=== PATIENT | male | born 1975 | race Hispanic/Latino ===

== ENCOUNTER 2025-04-15 10:44 | Emergency (ER) | payer OTHER ==
[~2025-04-15] VITALS: Ht 162.6 cm; Wt 68.0 kg
--- NOTE | 2025-04-15 11:36 | HMCIMG ---
Exam Type: HAND 3+VWS LT Clinical Information: injury with drill to thumb Comparison: None Findings: The bone examination is unremarkable. No fractures or dislocations are seen. No radiopaque foreign bodies are noted. Soft tissue laceration of the first digit seen without underlying fractures. IMPRESSION: Normal bony examination.
[2025-04-15] MEDS: LIDOCAINE HCL 1% 20 ML VIAL INJ STA (11:46)
[2025-04-15] MEDS: ceFAZolin SODIUM 1 GM VIAL IM STA (11:46)
[2025-04-15] MEDS: HYDROcodone/APAP 5/325 1 TAB TABLET PO STA (11:46)
[2025-04-15] MEDS: teTANUS/diphthERIA TOXOID [ADULT] 0.5 ML VIAL IM ONE (11:48)
[2025-04-15] MEDS ORDERED: CEPH500B PO (12:04)
--- NOTE | 2025-04-15 12:05 | ERN ---
ED Note History of Present Illness Stated Complaint: DRILL LACERATION ON LT THUMB Chief Complaint: Laceration/Avulsion Time Seen by MD: 10:48 Time Seen by Midlevel: 10:50 Dictation: 49-year-old male coming in for laceration to the right thumb at the base with a drill. Patient is on aware if he is up-to-date with his tetanus vaccine. No other complaints Allergies: Coded Allergies: No Known Drug Allergies (Unverified Allergy, Unknown, 04/15/25) Past Medical History Past Medical History: High Cholesterol Surgical History: Other Surgical History Other: RIGHT SHOULDER , RIGHT BICEP, RIGHT LEG Review of System Dictation Constitutional: Negative for fever,chills, and weight loss Eyes: Negative for injury, pain,redness, and discharge ENT: Negative for injury,pain or swelling Cardiovascular: Negative for chest pain, palpitations, and edema Respiratory: Negative for shortness of breath, cough, and wheezing, Abdomen/GI: Negative for abdominal pain, nausea, vomiting, diarrhea, and constipation Back: Negative for injury and pain : Negative for injury, bleeding and discharge MS/Extremity: Negative for injury and deformity Skin: Negative for rash, and discoloration, laceration to the base of the right thumb Neuro: Negative for headache, weakness, numbness, tingling, and seizure Psych: Negative for suicide ideation, homicidal ideation, and hallucinations Review of Systems: was completed Initial Vital Sign VS Vital Signs Date Time Temp Pulse Resp B/P (MAP) Pulse Ox O2 Delivery O2 Flow Rate FiO2 04/15/25 10:52 98.1 70 20 105/63 99 Room Air 0 Physical Exam Dictation General: awake, alert, NAD Head/Face: Normocephalic, atraumatic Eyes: PERRL, EOMI, vision at baseline ENT: oral cavity clear, TMs clear, no signs of infection Neck: Trachea midline, supple, no nuchal rigidity Cardiovascular: RRR, normal S1/S2, No MRGs, no JVD Respiratory: CTAB, no respiratory distress, No rales or wheezes Abdomen: Soft, non-tender, non-distended, normal bowel sounds, no guarding or rebound. Skin: Warm, dry, normal turgor, no rash MS/Extremity: Pulses equal, no cyanosis, neurovascular intact, FROM, there is a 1 in laceration to the base of the right thumb, patient has good flexion and extension of the thumb. Low suspicion for tendon involvement. Neuro: COAx4, GCS 15, strength 5/5, CN 2-12 intact, normal cerebellar exam, normal gait, Psych: Normal behavior, mood, and affect normal Results (Laboratory/Radiology) X-RAY Comment: [facility] [id number] [place], [place] [id number] IMAGING REPORT Signed PATIENT: THEODORE FRY MR#: [id number] : 1975 SEX: M AGE: 49 LOCATION: [facility] ORDER 105 STATUS: REG ER REPORT#: [id number] SERVICE 105 REASON: injury with drill to thumb ORDERING PHYSICIAN: ZELDA BUTCHER NP PROCEDURE: HAND 3V LT - HAND 3+VWS LT Exam Type: HAND 3+VWS LT Clinical Information: injury with drill to thumb Comparison: None Findings: The bone examination is unremarkable. No fractures or dislocations are seen. No radiopaque foreign bodies are noted. Soft tissue laceration of the first digit seen without underlying fractures. IMPRESSION: Normal bony examination. DICTATED BY: CAROLINA BALDERRAMA MD DATE: 04/15/251132 ELECTRONICALLY SIGNED BY: CAROLINA BALDERRAMA MD DATE: 04/15/251135 ED Course ED Course Orders Procedure Category Date Status Time Hand 3+Vws Lt RAD 04/15/25 Resulted 10:53 Tetanus,Diphtheria PHA 04/15/25 Complete Tox [Adult] (Diphther 11:00 Cefazolin Sodium 1 Gm PHA 04/15/25 Complete Vial (Ancef 1 Gm V 10:53 Hydrocodone/Apap PHA 04/15/25 Complete 5/325 (Leon 5/325mg) 10:53 Lidocaine Hcl 1% 20ml PHA 04/15/25 Complete Vial (Lidocaine Hc 10:53 Water For PHA 04/15/25 Complete Injection,Sterile 11:35 Current Medications Medications (Trade) Dose Ordered Sig/Hernando Route PRN Reason Start Time Stop Time Status Last Admin Dose Admin Acetaminophen/ Hydrocodone Bitart (NORco 5/325MG) 1 tab ONCE STAT PO 04/15/25 10:53 04/15/25 11:27 DC 04/15/25 11:46 Cefazolin Sodium (ANCEF 1 gm vial) 1 gm ONCE STAT IM 04/15/25 10:53 04/15/25 11:27 DC 04/15/25 11:46 Lidocaine HCl (Lidocaine HCl 1% 20ml Vial) ONCE STAT INJ 04/15/25 10:53 04/15/25 11:27 DC 04/15/25 11:46 Sterile Water (Sterile Water, Injection) 10 ml STK-MED ONCE .ROUTE 04/15/25 11:35 04/15/25 11:36 DC 04/15/25 11:48 Tetanus/ Diphtheria Toxoids Adsorbed (DiphthERIA-teTANUS TOXOID [ADULT]/ DECAVAC) 0.5 ml ONCE ONCE IM 04/15/25 11:00 04/15/25 11:27 DC 04/15/25 11:48 Vital Signs Date Time Temp Pulse Resp B/P (MAP) Pulse Ox O2 Delivery O2 Flow Rate FiO2 04/15/25 10:52 98.1 70 20 105/63 99 Room Air 0 Medical Decision Making MDM MDM: 49-year-old male coming in for laceration to the right thumb at the base with a drill. Patient is on aware if he is up-to-date with his tetanus vaccine. No other complaints see laceration repair. Educated patient to return if 7-10 days to remove sutures. Educated on red flag symptoms to return back to the emergency room. Patient verbalized understanding, answered all questions. Differential diagnosis: Laceration, tendon involvement, fracture Rationale: Tests considered and ordered secondary to shared decision making include: Previous outside records reviewed: Old ER visits. Risk of complication and/or morbidity or mortality of patient management: None Medications-Per medication reconciliation Need for hospitalization: Patient does not meet criteria for hospitalization. Need for emergency major/minor surgery: No There are no social concerns with this patient. Prescription drug management Prescriptions will include symptomatic care Patient's prior external medical records from other ER visits were reviewed by me as indicated. Prior testing and results from previous visits were reviewed. Prior tests were taken into account with medical decision making and resource utilization, independent historian/historians were used to obtain complete medical history. I independently interpreted the test that were performed, results were reviewed by me and considered findings on radiology if ordered. Medical management and examination interpretation discussions were had by me with other qualified healthcare professionals as indicated for the patient's care. Procedure Wound Location: upper extremity (right hand, thumb) Wound's Depth, Shape: irregular Wound Explored: clean Irrigated w/ Saline (ccs): 30 Anesthesia: 1% Lidocaine Volume Anesthetic (ccs): 8 Wound Debrided: minimal Wound Repaired With: sutures Suture Size/Type: 3:0 Number of Sutures: 7 DX & DISP Disposition: Discharge Departure Impression: Primary Impression: Laceration of thumb Condition: Stable Scripts Cephalexin Monohydrate (Keflex) 500 Mg Cap 500 MG PO BID for 7 Days, #14 CAP Prov: ZELDA BUTCHER METHODS ANALYST DATA PROCESSING 04/15/25 Additional Instructions: Keep area clean. Wash with soap and water. Avoid any moisture. Up did not apply any ointment or creams. Take antibiotics as prescribed. Return in 7-10 days to remove sutures. Return sooner if you notice any signs of infection. Referrals: SELF,REFERRAL (PCP) ZELDA BUTCHER NP Apr 15, 2025 12:05
[2025-04-15 12:06] VITALS: BP 110/62; PULSE 70; RESP 2; TEMP 98.1; O2SAT 99
== END 2025-04-15 12:16 | disposition home or self-care (01) ==
LOC: EDH 10:44
DX: S61.011A Laceration without foreign body of right thumb without damage to nail, initial encounter (principal); E78.00 Pure hypercholesterolemia, unspecified; X78.8XXA Intentional self-harm by other sharp object, initial encounter; Y93.89 Activity, other specified; Y92.89 Other specified places as the place of occurrence of the external cause; Y99.8 Other external cause status
CPT/HCPCS: 99284; 90714; 73130; 90471; 12001; 96372; J0690

== ENCOUNTER 2025-04-23 12:03 | Emergency (ER) | payer OTHER ==
[~2025-04-23] VITALS: Ht 162.6 cm; Wt 68.0 kg
[~2025-04-23 12:03] MED LIST: CEPH500B PO
--- NOTE | 2025-04-23 12:38 | ERN ---
ED Note History of Present Illness Stated Complaint: SUTURE REMOVAL Chief Complaint: Suture/Staple Removal Time Seen by MD: 12:06 Time Seen by Midlevel: 12:10 Dictation: 49-year-old male coming in for suture removal on his left thumb. Sutures were placed eight days ago when he had an accident with a drill. Denies having any discharge redness. Allergies: Coded Allergies: No Known Drug Allergies (Unverified Allergy, Unknown, 04/15/25) Home Meds Active Scripts Cephalexin Monohydrate (Keflex) 500 Mg Cap, 500 MG PO BID for 7 Days, #14 CAP Prov:ZELDA BUTCHER [employer]ENDIARY POWDER MIXER 04/15/25 Past Medical History Past Medical History: High Cholesterol Surgical History: Other Surgical History Other: RT SHOULDER RT THUMB , RT LEG FX Review of System Dictation Constitutional: Negative for fever,chills, and weight loss Eyes: Negative for injury, pain,redness, and discharge ENT: Negative for injury,pain or swelling Cardiovascular: Negative for chest pain, palpitations, and edema Respiratory: Negative for shortness of breath, cough, and wheezing, Abdomen/GI: Negative for abdominal pain, nausea, vomiting, diarrhea, and const ipation Back: Negative for injury and pain : Negative for injury, bleeding and discharge MS/Extremity: Negative for injury and deformity Skin: Negative for rash, and discoloration, lactic left thumb with sutures in place Neuro: Negative for headache, weakness, numbness, tingling, and seizure Psych: Negative for suicide ideation, homicidal ideation, and hallucinations Review of Systems: was completed Initial Vital Sign VS Vital Signs Date Time Temp Pulse Resp B/P (MAP) Pulse Ox O2 Delivery O2 Flow Rate FiO2 04/23/25 12:06 98.1 64 16 112/79 99 Room Air 0 04/23/25 12:39 21 Physical Exam Dictation General: awake, alert, NAD Head/Face: Normocephalic, atraumatic Eyes: PERRL, EOMI, vision at baseline ENT: oral cavity clear, TMs clear, no signs of infection Neck: Trachea midline, supple, no nuchal rigidity Cardiovascular: RRR, normal S1/S2, No MRGs, no JVD Respiratory: CTAB, no respiratory distress, No rales or wheezes Abdomen: Soft, non-tender, non-distended, normal bowel sounds, no guarding or rebound. Skin: Warm, dry, normal turgor, no rash, sutures are intact, no redness no drainage. Patient has limited ROM could be related to swelling. Removed sutures, little bit of dehiscence to the edge of the wound, applied some Steri- Strips. MS/Extremity: Pulses equal, no cyanosis, neurovascular intact, FROM Neuro: COAx4, GCS 15, strength 5/5, CN 2-12 intact, normal cerebellar exam, normal gait, Psych: Normal behavior, mood, and affect normal ED Course ED Course Vital Signs Date Time Temp Pulse Resp B/P (MAP) Pulse Ox O2 Delivery O2 Flow Rate FiO2 04/23/25 12:39 98.1 62 18 118/74 98 Room Air* 0 21 04/23/25 12:06 98.1 64 16 112/79 99 Room Air 0 Medical Decision Making MDM MDM: 49-year-old male coming in for suture removal on his left thumb. Sutures were placed eight days ago when he had an accident with a drill. Denies having any discharge redness. Patient states he has finished his course of antibiotics. Sutures removed. Minimal dehiscence to the edge of the wound, applied Steri-Strips. Discussed with the patient to keep area clean and dry. Discussed to return if he has any drainage, redness, or any signs of infection. Patient verbalized understanding, answered all questions. Differential diagnosis: Wound dehiscence, cellulitis, suture all Rationale: Tests considered and ordered secondary to shared decision making include: Previous outside records reviewed: Old ER visits. Risk of complication and/or morbidity or mortality of patient management: None Medications-Per medication reconciliation Need for hospitalization: Patient does not meet criteria for hospitalization. Need for emergency major/minor surgery: No There are no social concerns with this patient. Prescription drug management Prescriptions will include symptomatic care Patient's prior external medical records from other ER visits were reviewed by me as indicated. Prior testing and results from previous visits were reviewed. Prior tests were taken into account with medical decision making and resource utilization, independent historian/historians were used to obtain complete medical history. I independently interpreted the test that were performed, results were reviewed by me and considered findings on radiology if ordered. Medical management and examination interpretation discussions were had by me with other qualified healthcare professionals as indicated for the patient's care. DX & DISP Disposition: Discharge Departure Impression: Primary Impression: Encounter for removal of sutures Condition: Stable Additional Instructions: Keep area clean and dry. Return to the hospital if you have any signs of infection like redness, pain, drainage, foul odor, otherwise follow up with your primary doctor in 1-2 days. Referrals: SELF,REFERRAL (PCP) Time of Disposition: 12:37 I have reviewed the case, and I agree with, Diagnosis and Plan ZELDA BUTCHER NP Apr 23, 2025 12:38 JASPAL LEMUS DO Apr 26, 2025 04:24
[2025-04-23 12:39] VITALS: BP 118/74; PULSE 62; RESP 18; TEMP 98.1; O2SAT 98
--- NOTE | 2025-04-23 12:39 | NUR ---
SUTURES REMOVED BY RAIL TRANSPORTATION TABELER ZELDA
--- NOTE | 2025-04-23 12:56 | NUR ---
PT TOLERATED SUTURE REMOVAL WELL
== END 2025-04-23 12:57 | disposition home or self-care (01) ==
LOC: EDH 12:03
DX: S61.012D Laceration without foreign body of left thumb without damage to nail, subsequent encounter (principal); E78.00 Pure hypercholesterolemia, unspecified; X58.XXXD Exposure to other specified factors, subsequent encounter
CPT/HCPCS: 99281